=== PATIENT | male | born 1970 | race African-American/Black ===

== ENCOUNTER 2016-08-07 08:08 | Emergency (ER) | payer BC, SELFPAY ==
[~2016-08-07 08:08] MED LIST: ADVAIR100 INH; ALBUTEROL PRN; CEFT5 PO; MEDROLPAK4 PO; PROAIR HFA INH; SINGULAIR1 PO
[2016-11-12] MEDS ORDERED: VENTOLIN HFA INH (01:30)
[2016-11-12] MEDS ORDERED: SINGULAIR1 PO (01:30)
[2016-11-15] MEDS ORDERED: TAGAMET 800 MG800 MG PO (12:02)
[2016-11-15] MEDS ORDERED: BACTRIM DS1 TAB PO (12:02)
== END 2016-08-07 09:00 | disposition home or self-care (01) ==
LOC: ER 08:08
DX: J45.901 Unspecified asthma with (acute) exacerbation (principal); F17.210 Nicotine dependence, cigarettes, uncomplicated; Z79.899 Other long term (current) drug therapy
CPT/HCPCS: 71020; 94640; 96372; 99285; J2930